=== PATIENT | female | born 1990 | race American Indian/Alaskan Native ===

== ENCOUNTER 2019-04-27 15:02 | Emergency (ER) | payer SELFPAY ==
--- NOTE | 2019-04-27 19:21 | Emergency Department Report ---
ED General Adult HPI - General Chief complaint: Upper Respiratory Infection Stated complaint: STOMACH PAIN/WEAKNESS/FEVER Time Seen by Provider: 04/27/19 19:16 Source: patient Mode of arrival: Ambulatory Limitations: No Limitations - History of Present Illness Initial comments: Patient is a 29-year-old female presents the emergency department with compl aints of a cough that began 2 weeks ago. She states she has mucus production. She has associated rhinorrhea, congestion. She denies any sick contacts. She denies any sore throat or ear pain. She states also beginning last night she began to have diarrhea. She has associated abdominal cramping and subjective fever. She denies any urinary symptoms or emesis. She doesn't report any hematochezia, vaginal discharge. she states her last period was in February. She does not know if she is or not. Severity scale (0 -10): 9 - Related Data Previous Rx's Medication Instructions Recorded Last Taken Type Benzonatate [Tessalon Perles] 100 mg PO Q8HR PRN #20 capsule 04/27/19 Unknown Rx Dicyclomine [Bentyl] 10 mg PO QID PRN #20 capsule 04/27/19 Unknown Rx Ondansetron [Zofran Odt] 4 mg PO Q8HR PRN #10 tab.rapdis 04/27/19 Unknown Rx Prednisone [predniSONE 10 mg 10 mg PO .TAPER #1 tab.ds.pk 04/27/19 Unknown Rx (6-Day Pack, 21 Tabs)] guaiFENesin ER [Mucinex ER] 600 mg PO BID #14 tablet.er 04/27/19 Unknown Rx Allergies Allergy/AdvReac Type Severity Reaction Status Date / Time Penicillins AdvReac Unknown Verified 04/27/19 15:04 ED Review of Systems ROS: Stated complaint: STOMACH PAIN/WEAKNESS/FEVER Other details as noted in HPI Comment: All other systems reviewed and negative ED Past Medical Hx - Past Medical History Previous Medical History?: No - Surgical History Past Surgical History?: No - Medications Home Medications: Home Medications Medication Instructions Recorded Confirmed Last Taken Type Benzonatate [Tessalon Perles] 100 mg PO Q8HR PRN #20 capsule 04/27/19 Unknown Rx Dicyclomine [Bentyl] 10 mg PO QID PRN #20 capsule 04/27/19 Unknown Rx Ondansetron [Zofran Odt] 4 mg PO Q8HR PRN #10 tab.rapdis 04/27/19 Unknown Rx Prednisone [predniSONE 10 mg 10 mg PO .TAPER #1 tab.ds.pk 04/27/19 Unknown Rx (6-Day Pack, 21 Tabs)] guaiFENesin ER [Mucinex ER] 600 mg PO BID #14 tablet.er 04/27/19 Unknown Rx ED Physical Exam - General Limitations: No Limitations General appearance: alert, in no apparent distress - Head Head exam: Present: atraumatic, normocephalic - Eye Eye exam: Present: normal appearance, PERRL - ENT ENT exam: Present: normal orophraynx, mucous membranes moist, TM's normal bilaterally, normal external ear exam - Respiratory Respiratory exam: Present: normal lung sounds bilaterally. Absent: respiratory distress, wheezes, rales, rhonchi, stridor, chest wall tenderness, accessory muscle use, decreased breath sounds, prolonged expiratory - Cardiovascular Cardiovascular Exam: Present: regular rate, normal rhythm, normal heart sounds. Absent: systolic murmur, diastolic murmur, rubs, gallop - GI/Abdominal GI/Abdominal exam: Present: soft, normal bowel sounds. Absent: distended, tenderness, guarding, rebound, rigid - Neurological Exam Neurological exam: Present: alert, oriented X3 - Psychiatric Psychiatric exam: Present: normal affect, normal mood - Skin Skin exam: Present: warm, dry, intact ED Course Vital Signs 04/27/19 04/27/19 04/27/19 16:53 20:08 22:55 Temperature 98.5 F Pulse Rate 102 H 60 60 Respiratory 18 17 16 Rate Blood Pressure 108/81 Blood Pressure 108/67 104/66 [Right] O2 Sat by Pulse 100 100 97 Oximetry ED Medical Decision Making - Lab Data Result diagrams: 04/27/19 19:31 04/27/19 19:31 Lab Results 04/27/19 04/27/19 04/27/19 Range/Units 19:31 19:31 20:10 WBC 9.2 (4.5-11.0) K/mm3 RBC 4.50 (3.65-5.03) M/mm3 Hgb 13.9 (10.1-14.3) gm/dl Hct 41.7 (30.3-42.9) % MCV 93 (79-97) fl MCH 31 (28-32) pg MCHC 33 (30-34) % RDW 15.3 H (13.2-15.2) % Plt Count 243 (140-440) K/mm3 Lymph % (Auto) 13.4 (13.4-35.0) % [place] % (Auto) 7.7 H (0.0-7.3) % Eos % (Auto) 0.3 (0.0-4.3) % Baso % (Auto) 0.3 (0.0-1.8) % Lymph # 1.2 (1.2-5.4) K/mm3 [place] # 0.7 (0.0-0.8) K/mm3 Eos # 0.0 (0.0-0.4) K/mm3 Baso # 0.0 (0.0-0.1) K/mm3 Seg Neutrophils % 78.3 H (40.0-70.0) % Seg Neutrophils # 7.2 (1.8-7.7) K/mm3 Sodium 138 (137-145) mmol/L Potassium 3.8 (3.6-5.0) mmol/L Chloride 103.5 (98-107) mmol/L Carbon Dioxide 18 L (22-30) mmol/L Anion Gap 20 mmol/L BUN 10 (7-17) mg/dL Creatinine 0.8 (0.7-1.2) mg/dL Estimated GFR > 60 ml/min BUN/Creatinine Ratio 13 % Glucose 87 (65-100) mg/dL Calcium 9.2 (8.4-10.2) mg/dL Total Bilirubin 0.40 (0.1-1.2) mg/dL AST 18 (5-40) units/L ALT 13 (7-56) units/L Alkaline Phosphatase 52 (35-129) units/L Total Protein 7.4 (6.3-8.2) g/dL Albumin 4.1 (3.9-5) g/dL Albumin/Globulin Ratio 1.2 % Lipase 12 L (13-60) units/L Urine Color [place] (Yellow) Urine Turbidity Cloudy (Clear) Urine pH 5.0 (5.0-7.0) Ur Specific [place] 1.027 (1.003-1.030) Urine Protein 30 mg/dl (Negative) mg/dL Urine Glucose (UA) Neg (Negative) mg/dL Urine Ketones 20 (Negative) mg/dL Urine Blood Neg (Negative) Urine Nitrite Neg (Negative) Ur Reducing Substances Not Reportable Urine Bilirubin Neg (Negative) Urine Ictotest Not Reportable Urine Urobilinogen < 2.0 (<2.0) mg/dL Ur Leukocyte Esterase Neg (Negative) Urine WBC (Auto) 1.0 (0.0-6.0) /HPF Urine RBC (Auto) 1.0 (0.0-6.0) /HPF U Epithel Cells (Auto) 31.0 H (0-13.0) /HPF Urine Mucus 3+ /HPF Urine HCG, Qual Negative (Negative) Vital Signs 04/27/19 04/27/19 16:53 20:08 Temperature 98.5 F Pulse Rate 102 H 60 Respiratory 18 17 Rate Blood Pressure 108/81 Blood Pressure 108/67 [Right] O2 Sat by Pulse 100 100 Oximetry Vital Signs 04/27/19 04/27/19 04/27/19 16:53 20:08 22:55 Temperature 98.5 F Pulse Rate 102 H 60 60 Respiratory 18 17 16 Rate Blood Pressure 108/81 Blood Pressure 108/67 104/66 [Right] O2 Sat by Pulse 100 100 97 Oximetry - Radiology Data Radiology results: report reviewed PROCEDURE: XR CHEST ROUTINE 2V TECHNIQUE: PA and lateral chest radiographs were obtained. HISTORY: cough COMPARISONS: None. FINDINGS: Frontal and lateral views of the chest were acquired. The heart is normal in size. The lungs are hyperinflated. There is no consolidative infiltrate. IMPRESSION: Hyperinflation This document is electronically signed by Rudy Daugherty MD., April 27 2019 10:27:16 PM ET Transcribed By: JR Dictated By: RUDY DAUGHERTY MD Electronically Authenticated By: RUDY DAUGHERTY MD Signed Date/Time: 04/27/19 2229 - Medical Decision Making Patient is a 29-year-old female presents the emergency department with complaints of a cough that began 2 weeks ago. She states she has mucus production. She has associated rhinorrhea, congestion. She denies any sick contacts. She denies any sore throat or ear pain. She states also beginning last night she began to have diarrhea. She has associated abdominal cramping and subjective fever. She denies any urinary symptoms or emesis. She doesn't report any hematochezia, vaginal discharge. she states her last period was in February. She does not know if she is or not. Vitals are normal. no abd tenderness on exam. Labs WNL. UA is normal. urine preg is negative. CXR with hyperinflation otherwise no acute process. lungs are clear, no w/r/r. will give pt symptomatic treatment for URI. advised to take all medication as prescribed. drink plenty of fluids. return to the emergency room for any new or worsening symptoms. - Differential Diagnosis URI, PNA, Viral syndrome, gastroenteritis Critical care attestation.: If time is entered above; I have spent that time in minutes in the direct care of this critically ill patient, excluding procedure time. ED Disposition Clinical Impression: Cough Diarrhea Qualifiers: Diarrhea type: unspecified type Qualified Code(s): R19.7 - Diarrhea, unspecified Disposition: DC- TO HOME OR SELFCARE Is pt being admited?: No Does the pt Need Aspirin: No Condition: Stable Instructions: Upper Respiratory Infection (ED) Additional Instructions: please take all medication as prescribed. drink plenty of fluids. follow up with a primary care doctor in the next 2-3 days. return to the emergency room for any new or worsening symptoms. Prescriptions: Dicyclomine [Bentyl] 10 mg PO QID PRN #20 capsule PRN Reason: abdominal spasms guaiFENesin ER [Mucinex ER] 600 mg PO BID #14 tablet.er Prednisone [predniSONE 10 mg (6-Day Pack, 21 Tabs)] 10 mg PO .TAPER #1 tab.ds.pk Benzonatate [Tessalon Perles] 100 mg PO Q8HR PRN #20 capsule PRN Reason: Cough Ondansetron [Zofran Odt] 4 mg PO Q8HR PRN #10 tab.rapdis PRN Reason: Nausea Referrals: LEIF CID MD [Primary Care Provider] - 2-3 Days [facility] [Outside] - 2-3 Days [facility] [Outside] - 2-3 Days Time of Disposition: 22:45 Print Language: BELARUSIAN
[2019-04-27] MEDS ORDERED: NACL 0.9% 1000 ML 1,000 ML IV ONE (19:22)
[2019-04-27] MEDS ORDERED: ZOFRAN IV ONE (19:22)
[2019-04-27 19:46] LABS: Basophils % (Auto) 0.3 % (0.0-1.8); Eosinophils % (Auto) 0.3 % (0.0-4.3); Hematocrit 41.7 % (30.3-42.9); Hemoglobin 13.9 gm/dl (10.1-14.3); Lymphocytes # (Auto) 1.2 K/mm3 (1.2-5.4); Lymphocytes % (Auto) 13.4 % (13.4-35.0); Mean Corpuscular HGB Conc 33 % (30-34); Mean Corpuscular Volume 93 fl (79-97); Monocytes # (Auto) 0.7 K/mm3 (0.0-0.8); Monocytes % (Auto) 7.7 % (0.0-7.3); Platelet Count 243 K/mm3 (140-440); Red Cell Distribution Width 15.3 % (13.2-15.2)
[2019-04-27 20:08] LABS: Alanine Aminotransferase 13 units/L (7-56); Albumin 4.1 g/dL (3.9-5); BUN/Creatinine Ratio 13; Blood Urea Nitrogen 10 mg/dL (7-17); Calcium 9.2 mg/dL (8.4-10.2); Hemolysis Index 30
[2019-04-27 21:47] LABS: HCG Qualitative,Urine Negative (Negative)
[2019-04-27 21:48] LABS: Bilirubin,Urine NEG (Negative); Blood,Urine NEG (Negative); Color,Urine Amber (Yellow); Mucus,Urine 3+ /HPF; Urobilinogen,Urine < 2.0 mg/dL (<2.0)
--- NOTE | 2019-04-27 22:29 | XRay Report ---
PROCEDURE: XR CHEST ROUTINE 2V TECHNIQUE: PA and lateral chest radiographs were obtained. HISTORY: cough COMPARISONS: None. FINDINGS: Frontal and lateral views of the chest were acquired. The heart is normal in size. The lung s are hyperinflated. There is no consolidative infiltrate. IMPRESSION: Hyperinflation This document is electronically signed by Rudy Daugherty MD., April 27 2019 10:27:16 PM ET
[2019-04-27 22:56] VITALS: BP 104/66
== END 2019-04-27 22:55 | disposition home or self-care (01) ==
LOC: ED 15:02
DX: R05 Cough (principal); J34.89 Other specified disorders of nose and nasal sinuses; R19.7 Diarrhea, unspecified; R10.9 Unspecified abdominal pain; Z88.0 Allergy status to penicillin
CPT/HCPCS: 36415; 71046; 80053; 81001; 81025; 83690; 85025; 96361; 96374; 99284; J2405; J7030